=== PATIENT | male | born 1945 | race Caucasian/White ===

== ENCOUNTER → 2019-03-23 | Outpatient (CLI) | payer OTHER ==
--- NOTE | 2019-03-23 18:55 | ECHO ---
DATE OF PROCEDURE: 03/23/2019 AGE: 73 GENDER: Male HEIGHT: 67 inches WEIGHT: 160 pounds BODY SURFACE AREA: 1.84 m2 PATIENT LOCATION: Outpatient REFERRING PHYSICIAN: Talon Guevara MD INDICATION: Bradycardia / abnormal EKG. 2-D MEASUREMENTS: RV: 4.2 cm LV: 4.8 cm Septum: 1.0 cm Posterior wall: 1.0 cm Aortic root: 3.2 cm LA: 3.5 cm LVEF: 65% DOPPLER MEASUREMENTS: AV: 1.2 m/s LVOT: 1.0 m/s LVOT diameter: 2.0 cm MV-E: 73, A: 54, EA ratio: 1.3 Early mitral deceleration time: 220 ms E prime: 6.3, A prime: 10.3, E/E prime ratio: 11.6 PCWP: 14.9 mmHg PV: 0.8 m/s Pulmonary artery acceleration time: 100 ms RVSP: 37 mmHg IVC: 1.6 cm COMMENTS Sinus bradycardia without intraventricular conduction disturbance. M-mode and two-dimensional echocardiography was performed with pulsed, continuous wave, color flow and tissue Doppler studies. Normal left ventricular size, wall thickness and wall motion. Left atrial size upper limits of normal with Doppler evidence of impairment of LV diastolic function and estimated mean left atrial pressure upper limits of normal to slightly increased. Normal right heart chamber sizes and motion with Doppler evidence of mild pulmonary hypertension. Normal IVC size and collapse against an elevated central venous pressure. Subtle aortic valvular sclerosis without stenosis and only trace insufficiency. Normal aortic root diameter. Subtle degenerative changes of the mitral valvular apparatus with very mild insufficiency. Normal appearing tricuspid valve with moderate insufficiency. No apparent intracardiac mass or pericardial effusion.
== END ==
LOC: M CARPUL 10:08
PROVIDERS: ATTEND Internal Medicine
DX: R00.1 Bradycardia, unspecified (principal)

== ENCOUNTER → 2023-01-09 | Outpatient (CLI) | payer OTHER | LOC: M SOG 10:51 | PROVIDERS: ATTEND Orthopaedic Surgery | DX: M17.0 Bilateral primary osteoarthritis of knee (principal) ==

== ENCOUNTER → 2023-11-30 | Outpatient (CLI) | payer OTHER | LOC: M SOG 13:05 | PROVIDERS: ATTEND Orthopaedic Surgery | DX: M17.11 Unilateral primary osteoarthritis, right knee (principal); N17.0 Acute kidney failure with tubular necrosis ==